=== PATIENT | female | born 1960 | race Caucasian/White ===

== ENCOUNTER → 2024-04-05 06:37 | Day surgery (SDC) | payer BC, SELFPAY | LOC: GI 06:37 | PROVIDERS: ATTENDING PHYSICIAN Internal Medicine Gastroenterology | DX: Z12.11 Encounter for screening for malignant neoplasm of colon (principal); D12.4 Benign neoplasm of descending colon; K64.8 Other hemorrhoids; K59.00 Constipation, unspecified; K31.89 Other diseases of stomach and duodenum; R12 Heartburn | CPT/HCPCS: 45380; 43239; 88305; 88342 ==